=== PATIENT | female | born 1995 | race Caucasian/White ===

== ENCOUNTER 2020-09-11 12:25 | Emergency (ER) | payer OTHER ==
[2020-09-11 12:37] VITALS: BP 139/86; PULSE 79; TEMP 98.1; BMI 21.1
[2020-09-11] MEDS ORDERED: ONDANSETRON *ODT* 4 MG TABLET SL ONE (13:27)
[2020-09-11] MEDS ORDERED: ONDANSETRON *ODT* 4 MG TABLET ONE (13:27)
== END 2020-09-11 15:34 | disposition home or self-care (01) ==
LOC: JER 12:25
DX: O21.1 Hyperemesis gravidarum with metabolic disturbance (principal)
CPT/HCPCS: 76815-TC; 99284-25; Q0162

== ENCOUNTER 2021-04-03 01:05 | Inpatient (IN) | payer OTHER ==
[2021-04-03] MEDS ORDERED: AMPICILLIN SODIUM 2 GM VIAL ONE (01:52)
[2021-04-03] MEDS ORDERED: AMPICILLIN - 2 GM in SODIUM CHLORIDE 100 ML IVPB ONE (02:00)
[2021-04-03 02:09] LABS: BASO % 0.2 % (0-2.0); EOS % 0.6 % (0-4.5); HEMATOCRIT 34.3 % (32.4-45.2); HEMOGLOBIN 11.4 GM/dL (10.7-15.3); LYMPH % 17.7 % (8-40); MCH 28.8 pg (25.7-33.7); MCHC 33.2 g/dl (32.0-36.0); MEAN CELL VOLUME 86.8 fl (80-96); MEAN PLT VOLUME 10.4 fl (7.5-11.1); MONO % 13.3 % (3.8-10.2); NEUT % 68.2 % (42.8-82.8); PLATELET COUNT 82 10^3/uL (134-434); RBC 3.95 M/mm3 (3.60-5.2); RDW 13.6 % (11.6-15.6); WHITE BLOOD COUNT 6.5 K/mm3 (4.0-10.0)
[2021-04-03 02:17] LABS: INR 0.95 (0.83-1.09); PROTHROMBIN TIME (PATIENT) 10.6 SEC (9.7-13.0)
[2021-04-03 02:19] LABS: ACTIVATED PTT 25.9 SECONDS (25.2-36.5)
[2021-04-03 02:31] LABS: BLOOD UREA NITROGEN 10.2 mg/dL (7-18); CALCIUM 8.3 mg/dL (8.5-10.1)
[2021-04-03 02:34] LABS: CREATININE 0.6 mg/dL (0.55-1.3)
[2021-04-03] MEDS ORDERED: OXYTOCIN 20 UNITS in 0.9% NS 20 UNIT/1,000 ML INFUS.BAG IV ONE (02:48)
[2021-04-03] MEDS ORDERED: BUTORPHANOL TARTRATE 1 MG/ML VIAL ONE (03:00)
[2021-04-03] MEDS ORDERED: PROMETHAZINE HCL 25 MG/1 ML VIAL ONE (03:01)
[2021-04-03] MEDS ORDERED: BUTORPHANOL TARTRATE 1 MG/ML VIAL IVPB ONE ×2 (03:11→03:45)
[2021-04-03] MEDS ORDERED: PROMETHAZINE HCL 25 MG/1 ML VIAL IVPUSH ONE (03:11)
[2021-04-03] MEDS ORDERED: ELECTROLYTE-148 SOLN 1,000 ML IV SCH (03:15)
[2021-04-03 03:16] VITALS: BMI 32.1
[2021-04-03 03:16] LABS: PLATELET ESTIMATE DECREASED
[2021-04-03] MEDS ORDERED: PROMETHAZINE HCL 25 MG/1 ML VIAL IVPB ONE (03:45)
[2021-04-03] MEDS ORDERED: oxyCODONE HCL 5 MG TABLET PO PRN (04:30)
[2021-04-03] MEDS ORDERED: BISACODYL 10 MG SUPP.RECT RC PRN (04:30)
[2021-04-03] MEDS ORDERED: WITCH HAZEL 50% (TUCKS) 40 PAD/JAR PAD TP PRN (04:30)
[2021-04-03] MEDS ORDERED: ACETAMINOPHEN 325 MG TABLET (FP) PO PRN (04:30)
[2021-04-03] MEDS ORDERED: METHYLERGONOVINE MALEATE 0.2 MG/1 ML AMP IM PRN (04:30)
[2021-04-03] MEDS ORDERED: BENZOCAINE 20% 57 GM BOTTLE TP PRN (04:30)
[2021-04-03] MEDS ORDERED: OXYTOCIN 20 UNITS in 0.9% NS 20 UNIT/1,000 ML INFUS.BAG IV SCH (04:30)
[2021-04-03] MEDS ORDERED: BENZOCAINE 28 GM HEMORRHOIDAL OINTMENT TP PRN (04:30)
[2021-04-03] MEDS ORDERED: AMPICILLIN - 1 GM in SODIUM CHLORIDE 100 ML IVPB SCH (06:00)
[2021-04-03] MEDS: IBUPROFEN 600 MG TABLET (FP) PO PRN ×2 (07:44→19:46)
[2021-04-04] MEDS: IBUPROFEN 600 MG TABLET (FP) PO PRN ×4 (00:20→18:08)
[2021-04-04 09:06] LABS: BASO % 0.3 % (0-2.0); EOS % 1.1 % (0-4.5); HEMATOCRIT 29.1 % (32.4-45.2); HEMOGLOBIN 9.5 GM/dL (10.7-15.3); LYMPH % 18.9 % (8-40); MCH 29.2 pg (25.7-33.7); MCHC 32.7 g/dl (32.0-36.0); MEAN CELL VOLUME 89.1 fl (80-96); MEAN PLT VOLUME 10.8 fl (7.5-11.1); MONO % 9.7 % (3.8-10.2); PLATELET COUNT 81 10^3/uL (134-434); RBC 3.27 M/mm3 (3.60-5.2); WHITE BLOOD COUNT 8.3 K/mm3 (4.0-10.0)
[2021-04-04] MEDS ORDERED: SENNOSIDES/DOCUSATE COMBO (SENNA PLUS) TABLET (UD) PO PRN (22:00)
[2021-04-04 22:20] VITALS: TEMP 98.2
[2021-04-05] MEDS: IBUPROFEN 600 MG TABLET (FP) PO PRN ×2 (03:09→09:49)
[2021-04-05 13:31] VITALS: BP 130/73; PULSE 81
== END 2021-04-05 13:10 | disposition home or self-care (01) | DRG 560 ==
LOC: JDEL 01:05 → JLDR 01:15 → J3W 05:48
PROVIDERS: ADMIT Obstetrics & Gynecology; ATTEND Obstetrics & Gynecology
PROC: 10E0XZZ Delivery of Products of Conception, External Approach (ICD-10-PCS; principal; 2021-04-03)
PROC: 0W8NXZZ Division of Female Perineum, External Approach (ICD-10-PCS; 2021-04-03)
DX: O32.8XX1 Maternal care for other malpresentation of fetus, fetus 1 (principal); O99.824 Streptococcus B carrier state complicating childbirth; Z3A.39 39 weeks gestation of pregnancy; Z37.0 Single live birth
CPT/HCPCS: 36415; 59025; 59409; 80048; 85025; 85032; 85610; 85730; 86780; 86850; 86900; 86901; 87086; C9803; G0463-25; U0003; U0005